=== PATIENT | male | born 1990 | race Two or more races ===

== ENCOUNTER 2017-11-25 14:49 | Emergency (ER) | payer MEDICAID ==
[2017-11-25] MEDS ORDERED: ONDANSETRON DISINTEGRATING 4 MG TAB PO ONE (14:59)
[2017-11-25] MEDS ORDERED: NS 1,000 ML IV ONE (14:59)
[2017-11-25 15:13] VITALS: RESP 18; TEMP 98
[2017-11-25] MEDS ORDERED: METOCLOPRAMIDE 10 MG/2 ML VIAL IVP ONE (15:20)
[2017-11-25] MEDS ORDERED: KETOROLAC 30 MG/1 ML SDV IVP ONE (15:20)
[2017-11-25 15:37] LABS: PLATELET COUNT 301 10^3/uL (150-400)
--- NOTE | 2017-11-25 15:37 | CPEKG ---
Heart Rate: 68 RR Interval: 882 P-R Interval: 152 QRSD Interval: 86 QT Interval: 396 QTC Interval: 422 P [place]: 69 QRS [place]: 0 T Wave [place]: 25 EKG Severity - NORMAL ECG - EKG Impression: SINUS RHYTHM Electronically Signed By: Jared Nayak 25-Nov-2017 17:43:38
[2017-11-25] MEDS ORDERED: FAMOTIDINE 20 MG TAB PO ONE (16:06)
--- NOTE | 2017-11-25 16:17 | EDPHY ---
H & P Stated Complaint: c/o Vomiting blood and bilat flank pain x 3 days Time Seen by Provider: 11/25/17 14:58 HPI/ROS: This patient complains of hematemesis. He explains that over the past week he has had intermittent vomiting about every other day. He is not certain what is triggering vomiting. He does have a frontal headache that is moderate in intensity since this morning currently 4/10 pressure feeling but this does not feel like a migraine to him. He did notice some slight visual blurring that occasionally gets with migraines but he does not have throbbing pain or other neuro symptoms. When he vomited today, for the 1st time he noted bright red sore also blood in the toilet bowl long with usual appearing emesis. He had 2 of these episodes today that concerned him and prompted his visit. He does admit that he retched fairly hard today including 1 projectile vomit. At the moment he does have mild nausea. He also complains of left-sided sharp chest pain worsens with a deep breath intermittently over the past 2 days currently 3/ 10 intensity. It does not radiate. He also notes this pain with certain movements. He notes no other exacerbating or alleviating factors Source: Patient Exam Limitations: No limitations - Personal History Current Tetanus Diphtheria and Acellular Pertussis (TDAP): Unsure - Medical/Surgical History Other PMH: TA/ear tubes- child/GB- 2010/[place]y-2012/attempted Suicide 2012/ Chronic back issues/ HTN, hiatal hernia with Jefferson's esophagus - Family History Significant Family History: Heart disease (His father had an KS at age 37 and diet hematuria early from cardiac arrest) - Social History Smoking Status: Current every day smoker (He smokes 5 cigarettes a day) Alcohol Use: None Drug Use: None - Physical Exam Exam: Vital signs are normal General Appearance: Young male - Alert, no distress. Eyes: Pupils equal and round no pallor or injection. ENT, Mouth: Mucous membranes moist. No cranial tenderness externally to palpation or percussion. Ears: Clear bilaterally nose: Clear Respiratory: There are no retractions, lungs are clear to auscultation. Cardiovascular: Regular rate and rhythm. No murmur gallop rub. Gastrointestinal: Abdomen is soft and nontender, no masses, bowel sounds normal. Neurological: GCS 15. Cranial nerves 2-12 grossly intact. Skin: Warm and dry, no rashes. Musculoskeletal: Neck is supple nontender. Extremities are symmetrical, full range of motion. Psychiatric: Mood and affect are normal DIFFERENTIAL DIAGNOSIS: After history and physical exam differential diagnosis was considered for pneumothorax, pneumonia, pulmonary embolism, viral pleurisy, myocardial ischemic disease, GERD with vomiting, Ginette-Cooper tear, gastritis, tension headache, migraine headache, sinusitis Constitutional: Initial Vital Signs Temperature (C) 36.6 C 11/25/17 15:07 Heart Rate 77 11/25/17 15:07 Respiratory Rate 18 11/25/17 15:07 Blood Pressure 144/84 H 11/25/17 15:07 O2 Sat (%) 97 11/25/17 15:07 O2 Delivery Mode Room Air Allergies/Adverse Reactions: No Known Allergies Allergy (Unverified 11/25/17 15:06) Home Medications: Medication Instructions Recorded Bp Meds 11/25/17 Famotidine [Pepcid] 40 mg PO DAILY #30 tablet 11/25/17 Ondansetron Odt [Zofran Odt] 4 - 8 mg PO Q4PRN PRN #4 tab 11/25/17 Medical Decision Making - Diagnostics EKG Interpretation: 12 lead EKG performed at 1535 reveals sinus rhythm at 68 Intervals: Normal throughout [place]: Normal throughout ST segments: Normal throughout Overall assessment: Normal EKG Imaging Results: Imaging Impressions Chest X-Ray 11/25/17 16:17 Impression: No acute pulmonary disease. Chest x-ray PA and lateral: Normal by my interpretation Imaging: I viewed and interpreted images myself ED Course/Re-evaluation: Labs: Normal CBC, D-dimer negative, basic metabolic panel normal IV normal saline bolus Reglan, Benadryl, Toradol IV with improvement in headache, resolution of nausea vomiting Pepcid 40 mg p.o. Discussion: This patient has known history of hiatal hernia with GERD and reported history of Jefferson's esophagitis currently untreated. I suspect this chest pain currently may be related to esophagitis. I think that his description of hematemesis-bright blood sore also mixed with emesis likely represent Ginette-Cooper tear or mild esophagitis. Ruled out pneumonia, pneumothorax with normal chest radiograph. Given normal EKG in young age a doubt myocardial ischemic disease. I think that is current headache is likely a tension headache related to his anxiety about the hematemesis. Workup revealed no significant cardiopulmonary pathology or other concerning findings. I counseled him and his girlfriend in some detail regarding salina's workup and answer other questions prior to discharge home. Will start him on Pepcid - Data Points Laboratory Results: Laboratory Results 11/25/17 15:25 11/25/17 15:25 11/25/1718 11/25/17 15:25 15:25 15:25 WBC 6.58 10^3/uL 10^3/uL (3.80-9.50) RBC 4.84 10^6/uL 10^6/uL (4.40-6.38) Hgb 14.5 g/dL g/dL (13.7-17.5) Hct 41.4 % % (40.0-51.0) MCV 85.5 fL fL (81.5-99.8) MCH 30.0 pg pg (27.9-34.1) MCHC 35.0 g/dL g/dL (32.4-36.7) RDW 11.9 % % (11.5-15.2) Plt Count 301 10^3/uL 10^3/uL (150-400) MPV 9.2 fL fL (8.7-11.7) Neut % (Auto) 56.5 % % (39.3-74.2) Lymph % (Auto) 28.1 % % (15.0-45.0) [place] % (Auto) 9.6 % % (4.5-13.0) Eos % (Auto) 5.0 % % (0.6-7.6) Baso % (Auto) 0.6 % % (0.3-1.7) Nucleat RBC Rel Count 0.0 % % (0.0-0.2) Absolute Neuts (auto) 3.72 10^3/uL 10^3/uL (1.70-6.50) Absolute Lymphs (auto) 1.85 10^3/uL 10^3/uL (1.00-3.00) Absolute Monos (auto) 0.63 10^3/uL 10^3/uL (0.30-0.80) Absolute Eos (auto) 0.33 10^3/uL 10^3/uL (0.03-0.40) Absolute Basos (auto) 0.04 10^3/uL 10^3/uL (0.02-0.10) Absolute Nucleated RBC 0.00 10^3/uL 10^3/uL (0-0.01) Immature Gran % 0.2 % % (0.0-1.1) Immature Gran # 0.01 10^3/uL 10^3/uL (0.00-0.10) D-Dimer 0.27 ug/mLFEU ug/mLFEU (0.00-0.50) Sodium 137 mEq/L mEq/L (135-145) Potassium 3.9 mEq/L mEq/L (3.5-5.2) Chloride 105 mEq/L mEq/L (97-110) Carbon Dioxide 24 mEq/l mEq/l (22-31) Anion Gap 8 mEq/L mEq/L (8-16) BUN 13 mg/dL mg/dL (7-23) Creatinine 1.3 mg/dL mg/dL (0.7-1.3) Estimated GFR > 60 Glucose 107 mg/dL H mg/dL (70-100) Calcium 9.0 mg/dL mg/dL (8.5-10.4) Total Bilirubin Conjugated Bilirubin Unconjugated Bilirubin AST ALT Alkaline Phosphatase Total Protein Albumin 11/25/17 15:05 WBC RBC Hgb Hct MCV MCH MCHC RDW Plt Count MPV Neut % (Auto) Lymph % (Auto) [place] % (Auto) Eos % (Auto) Baso % (Auto) Nucleat RBC Rel Count Absolute Neuts (auto) Absolute Lymphs (auto) Absolute Monos (auto) Absolute Eos (auto) Absolute Basos (auto) Absolute Nucleated RBC Immature Gran % Immature Gran # D-Dimer Sodium Potassium Chloride Carbon Dioxide Anion Gap BUN Creatinine Estimated GFR Glucose Calcium Total Bilirubin 0.7 mg/dL mg/dL (0.1-1.4) Conjugated Bilirubin 0.3 mg/dL mg/dL (0.0-0.5) Unconjugated Bilirubin 0.4 mg/dL mg/dL (0.0-1.1) AST 42 IU/L IU/L (17-59) ALT 52 IU/L IU/L (21-72) Alkaline Phosphatase 68 IU/L IU/L (38-126) Total Protein 6.5 g/dL g/dL (6.3-8.2) Albumin 3.7 g/dL g/dL (3.5-5.0) Medications Given: Discontinued Medications Diphenhydramine HCl (Benadryl Injection) 25 mg IVP EDNOW ONE Stop: 11/25/17 15:21 Last Admin: 11/25/17 15:31 Dose: 25 mg Famotidine (Pepcid) 40 mg PO EDNOW ONE Stop: 11/25/17 16:07 Last Admin: 11/25/17 16:23 Dose: 40 mg Sodium Chloride (Ns) 1,000 mls @ 0 mls/hr IV EDNOW ONE; Wide Open PRN Reason: Protocol Stop: 11/25/17 15:00 Last Admin: 11/25/17 15:34 Dose: 1,000 mls Ketorolac Tromethamine (Toradol) 30 mg IVP EDNOW ONE Stop: 11/25/17 15:21 Last Admin: 11/25/17 15:31 Dose: 30 mg Metoclopramide HCl (Reglan Injection) 10 mg IVP EDNOW ONE Stop: 11/25/17 15:21 Last Admin: 11/25/17 15:32 Dose: 10 mg Ondansetron HCl (Zofran Odt) 8 mg PO EDNOW ONE Stop: 11/25/17 15:00 Last Admin: 11/25/17 15:39 Dose: Not Given Departure - Departure Disposition: Home, Routine, Self-Care Clinical Impression: Hematemesis with nausea, Esophagitis, Dehydration Headache Qualifiers: Headache type: tension-type Headache chronicity pattern: acute headache Intractability: not intractable Qualified Code(s): G44.209 - Tension-type headache, unspecified, not intractable Condition: Good Instructions: Gastroesophageal Reflux Disease (ED), Acute Headache (ED), Ginette-Cooper Syndrome (ED) Additional Instructions: Diagnoses: 1. Acute headache 2. Hematemesis 3. Esophagitis with chest pain Plan: Pepcid 40 mg a day Maalox in addition for chest discomfort if needed Tylenol for headaches as needed Drink plenty fluids Zofran for nausea vomiting if needed Follow up with primary care physician listed below for further evaluation sometime within the next 3-7 days. Return emergency department for any significant worsening despite the treatment plan. Referrals: [facility] [Other] - As per Instructions Prescriptions: Famotidine [Pepcid] 40 mg PO DAILY #30 tablet Ondansetron Odt [Zofran Odt] 4 - 8 mg PO Q4PRN PRN #4 tab PRN Reason: Vomiting
[2017-11-25 16:28] VITALS: O2SAT 96
[2017-11-25 17:09] VITALS: BP 112/62; PULSE 85
== END 2017-11-25 17:05 | disposition home or self-care (01) ==
LOC: CED 14:49
DX: K92.0 Hematemesis (principal); K20.9 Esophagitis, unspecified; E86.0 Dehydration; G44.209 Tension-type headache, unspecified, not intractable; I10 Essential (primary) hypertension; F17.200 Nicotine dependence, unspecified, uncomplicated; E86.9 Volume depletion, unspecified
CPT/HCPCS: 71046-PO; 80048-PO; 80076-PO; 85025-PO; 85378-PO; 96374; J1200; J1885; J2765